=== PATIENT | male | born 1985 | race Two or more races ===

== ENCOUNTER 2024-09-20 12:12 | Emergency (ER) | payer MEDICAID, SELFPAY ==
[2024-09-20 12:14] VITALS: BP 161/98; PULSE 93; RESP 18; TEMP 36.8; O2SAT 94
--- NOTE | 2024-09-20 12:15 | PC.NURSE ---
Pt. here from home to bed 2 via wheel chair, pt. son with him and states that pt. fell off a horse, pt. has bleeding from laceration to left eye, bleeding from nares and abrasion to right breast and upper chest, pt. has a abrasion to the top of right wrist. Spouse bedside.
--- NOTE | 2024-09-20 12:15 | PC.NURSE ---
C-collar applied to pt.'s neck.
--- NOTE | 2024-09-20 12:16 | XR_ITS ---
Examination: CT maxillofacial, without intravenous contrast. 2-D sagittal reconstructions. 3-D reconstructions. Date and time of exam:September 20, 2024 1254 hrs. Indications: Patient fell off a horse today with injury to the face, multiple head and facial lacerations CTDI: vol (mGy):26.6 DLP: (mGycm):538 Technique: Multiple axial images of maxillofacial region, 3.0 mm slice thickness. 2-D sagittal and coronal reconstructions. 3-D reconstructions. Low dose protocols were performed. One or more of the following dose reduction techniques were used; automated exposure control, adjustment of the mA and/or KV according to patient size, use of iterative reconstruction technique. Findings: Frontal bone intact No nasal bone fracture Acute comminuted fractures through the left frontal zygomatic arch lateral orbit Acute severely comminuted blowout fractures left inferior orbital rim, no definite entrapment of the inferior rectus muscle but clinical correlation advised Acute fractures posterior and lateral margin left orbit axial image 112, including far posterior lateral margin of the left orbit Acute fractures anterior left cranial fossa axial image 99 contiguous with the posterior margin of the orbit Acute comminuted fractures left zygomatic arch Acute markedly displaced fractures lateral wall left maxillary antrum Multiple acute fractures posterior wall left maxillary antrum Pterygoid plates appear intact Acute fractures superior lateral margin of the left temporal articulating fossa axial image 79 sagittal image 29 Acute fracture with offset left mandibular ramus. Impression: Acute multiple fractures left orbit as above Acute fractures multiple left maxillary antrum Acute comminuted fractures with depression left zygomatic arch Acute fractures superior lateral margin of the left temporal articulating fossa Acute fracture left mandibular ramus Acute fractures anterior left cranial fossa contiguous with the posterior margin of the left arm
--- NOTE | 2024-09-20 12:16 | XR_ITS ---
Examination: CT brain head without contrast. 2-D sagittal coronal reconstructions Date and time of exam:September 20, 2024 1254 hrs. Indications: Patient fell today with injury to the head, head pain altered mental status CTDI: vol (mGy):63 DLP: (mGycm):1419 Technique: Multiple CT axial sections of the brain have been obtained, 5 mm slice thickness. Contrast has not been administered. 2-D sagittal, coronal reconstructions have been obtained Low dose protocols were performed. One or more of the following dose reduction techniques were used; automated exposure control, adjustment of the mA and/or KV according to patient size, use of iterative reconstruction technique. Findings: No significant ventricular enlargement. Intra-axial or extra-axial hemorrhage density is not seen. No mass effect or midline shift Basal cisterns are not remarkable. Fourth ventricle is midline. Cranial vault intact. Impression: Negative for acute hemorrhage, mass effect or midline shift Please see the CT maxillofacial study today
--- NOTE | 2024-09-20 12:16 | XR_ITS ---
Examination: CT chest, without intravenous contrast. CT abdomen, without intravenous contrast. CT pelvis, without intravenous contrast. 2-D sagittal and coronal reconstructions. 3-D reconstructions. Date and time of exam:September 19, 2024 1258 hrs. Indications: Patient fell off a horse today with injury to the chest and abdomen, chest pain abdomen pain CTDI vol (mgy) 21.2 DLP (MGycm)1617 Technique: Multiple CT images, 3.0 mm slice thickness, obtained chest, abdomen, pelvis, with the high-resolution 64 slice scanner.. Sagittal and coronal 2-D reconstructions are obtained. 3-D reconstructions Low dose protocols were performed. One or more of the following dose reduction techniques were used; automated exposure control, adjustment of the mA and/or KV according to patient size, use of iterative reconstruction technique. Findings: Lack of intravenous contrast severely limits assessment for body, Thoracic aorta pulmonary arteries grossly intact No hemopericardium No pneumothorax pulmonary contusion or hemothorax Manubrium thoracic vertebral bodies intact Ribs appear intact No liver splenic or renal laceration on this noncontrast study No perinephric hematoma Negative for pneumoperitoneum Abdominal aorta is intact Normal appendix No free blood in the abdomen Colonic diverticulosis Urinary bladder intact No prostatomegaly Old fracture proximal right femur No acute hip or pelvic fracture Lumbar vertebral bodies intact with advanced degenerative disc disease L4-L5, L5-S1 Hips bones of the pelvis intact Impression: Thoracic aorta pulmonary arteries appear intact No hemopericardium, pneumothorax, pulmonary contusion or hemothorax No abdominal parenchymal laceration Abdominal aorta intact No free blood in the abdomen or pelvis
--- NOTE | 2024-09-20 12:16 | XR_ITS ---
Examination: CT cervical spine without contrast 2-D sagittal reconstructions 2-D coronal reconstructions 3-D reconstructions. Exam date and time:September 20, 2024 1254 hrs. Indications: Patient fell off 46 day with injury to the neck, neck pain CTDI:vol (mGy) 15.9 DLP: (mGycm) 319 Technique: Multiple 2 mm axial sections of the cervical spine have been obtained. The coronal and sagittal reconstructions have been obtained. 3-D reconstructions have been obtained. Low dose protocols were performed. One or more of the following dose reduction techniques were used; automated exposure control, adjustment of the mA and/or KV according to patient size, use of iterative reconstruction technique. Findings: Study is significantly degraded by patient motion No gross fracture Impression: Study is significantly degraded by patient motion No gross cervical fracture Repeat this study as clinically warranted
--- NOTE | 2024-09-20 12:19 | PD.EDHEAD ---
ED Head Injury RME/HPI General Chief complaint: Head Injury Stated complaint: FELL OFF HORSE Time Seen by Provider: 09/20/24 12:16 Arrival date/time: 09/20/24 12:12 RME / HPI RME / HPI Narrative: 39-year-old male patient with no significant medical history, was brought in by family via private vehicle, for evaluation after a fall off the horse. Incident happened about 30 minutes prior to ER visit. Patient was noted to be confused, and complaining of posterior neck pain, and left periorbital pain. Patient also sustained 1 cm nongaping laceration to the left upper eyelid. Patient was noted to be having a GCS of 14. Denies any chest pain abdominal pain back pain or pelvic pain. Patient was able to transfer from chair to bed. Tetanus vaccination is unknown. Related Data Allergies Allergy/AdvReac Type Severity Reaction Status Date / Time NKA* Allergy Uncoded 09/20/24 12:13 Review of Systems Review of Systems Narrative Review of Systems: Review of system reviewed and within normal limits except mentioned in HPI ED Exam Narrative Physical exam: VITAL SIGNS: Reviewed., GENERAL APPEARANCE: Alert and oriented x 1, follows simple commands, no acute distress, GCS 14 HEAD AND FACE: Swelling contusion left side of the face, 1 cm laceration left upper eyebrow, injected conjunctiva on the left, tenderness to the left zygomatic area, left mandibular area with swelling ENT: PERRL, pink conjunctivitis, eyelid no trauma, Mucous membrane moist. NECK: Supple, nontender, no nuchal rigidity. CHEST: No tenderness, no crepitus, no paradoxical movement, no retractions. LUNGS: Clear, well ventilated, symmetric, no rales, no wheezing, no ronchi, no stridor, good breath sounds bilaterally. HEART: Regular rate, regular rhythm, no murmur, no gallops. ABDOMEN: Soft, positive bowel sounds, nondistended, no guarding, nontender, no rebound, no masses, RECTAL: Deferred. GENITAL: Deferred. NEUROLOGICAL: Gross motor function intact sensory function intact, Appropriate for age. MUSCULOSKELETAL: low back nontender, full range of motion. EXTREMITIES: Nontender, full range of motion. SKIN: Color pink, dry, no rash, no lacerations, no abrasions, no contusions. LYMPHATICS: Deferred. Course Quality Measures none Orders Category Date Time Status Referral - Finish Grinder Stat Cons 09/20/24 14:[address] cervical spine wo con Stat Exams 09/20/24 12:[address] chest abdomen pelvis wo Stat Exams 09/20/24 12:[address] facial bones wo con Stat Exams 09/20/24 12:[address] head/brain wo con Stat Exams 09/20/24 12:16 Completed CBC [CBC] Stat Lab 09/20/24 12:26 Completed CMP [Comprehensive Metabolic Panel] Stat Lab 09/20/24 12:26 Completed PTT [Partial Thromboplastin Time] Stat Lab 09/20/24 12:26 Completed UA, C/S IF [Urinalysis, C/S if Indicated] Stat Lab 09/20/24 12:18 Ordered Acetaminophen Ivpb [Ofirmev Inj] Med 09/20/24 12:17 Discontinued 1,000 mg in 100 ml IV X1 Amoxicillin/Pot Clav 875 [Augmentin 875] Med 09/20/24 15:17 Discontinued 1 tab PO X1 ONE Tet,Diphth,Pertuss(Acell)-Tdap [Boostrix Vacc] Med 09/20/24 12:17 Discontinued 0.5 ml IMI .ONCE ONE Vital Signs Vital signs: Vital Signs Temperature 98.2 F 09/20/24 12:14 Pulse Rate 93 09/20/24 12:14 Respiratory Rate 18 09/20/24 12:14 Blood Pressure 161/98 H 09/20/24 12:14 Pulse Oximetry (%) 94 L 09/20/24 12:14 Oxygen Delivery Method Room Air 09/20/24 12:14 Head Injury MDM Narrative MDM Narrative:: 39-year-old male patient with no significant medical history, was brought in by family via private vehicle, for evaluation after a fall off the horse. Incident happened about 30 minutes prior to ER visit. Patient was noted to be confused, and complaining of posterior neck pain, and left periorbital pain. Patient also sustained 1 cm nongaping laceration to the left upper eyelid. Patient was noted to be having a GCS of 14. Denies any chest pain abdominal pain back pain or pelvic pain. Patient was able to transfer from chair to bed. Tetanus vaccination is unknown. Patient sustained multiple fracture on the left side of the face, namely, acute multiple fracture of the left orbit, acute fracture multiple left maxillary antrum, acute comminuted fracture with depression left zygomatic arch, acute fracture superior lateral margin of the left temporal articulating facet, acute fracture left mandibular ramus, acute fracture anterior left cranial fossa with continues with the posterior margin of the left arm. CT scan of the head came back unremarkable. CT scan today came back unremarkable. CT scan of the chest abdomen pelvis came back unremarkable. Patient was given Tylenol IV, Boostrix, Patient is to be transferred for higher level care where there is a trauma surgeon/maxillofacial surgeon. Spoke with the patient family and agrees to be transferred. None 2 pm Spoke with transfer nurse, and will initiate the transfer. 12:30 PM, patient got accepted to [facility] in [place], accepting trauma surgeon Dr. Rivas, facial surgeon Dr. Rodgers Patient data External records reviewed:: None Clinical information provided by:: patient Social determinants that could affect healthcare access:: none Patient has the following chronic illnesses:: None How is presenting disease/condition affected by chronic disease/condition?: no chronic disease Evaluation data The following diagnostics were reviewed and interpreted by me:: lab results and radiology exam(s) Lab and/or radiology exams considered but not ordered:: None Interpretation Summary: Patient sustained multiple fracture on the left side of the face, namely, acute multiple fracture of the left orbit, acute fracture multiple left maxillary antrum, acute comminuted fracture with depression left zygomatic arch, acute fracture superior lateral margin of the left temporal articulating facet, acute fracture left mandibular ramus, acute fracture anterior left cranial fossa with continues with the posterior margin of the left arm. CT scan of the head came back unremarkable. CT scan today came back unremarkable. CT scan of the chest abdomen pelvis came back unremarkable. Medications / Prescriptions Medications or Prescriptions considered but not ordered:: None Medication administrations:: Medication Administration History Discontinued Medications Amoxicillin/Clavulanate Potassium (Amoxicillin/Pot Clav 875 Tablet) 1 tab PO X1 ONE Stop: 09/20/24 15:18 Diphtheria/Tetanus/Acell Pertussis (Diphth,Pertuss(Acell),Tet Vac 0.5 Ml Vial) 0.5 ml IMi .ONCE ONE Stop: 09/20/24 12:18 Last Admin: 09/20/24 12:34 Dose: 0.5 ml Documented By: ED Acetaminophen (Ofirmev Inj) 1,000 mg in 100 mls @ 250 mls/hr IV X1 ONE Stop: 09/20/24 12:40 Last Admin: 09/20/24 12:30 Dose: 250 mls/hr Documented By: ED Tylenol IV, Boostrix and Augmentin Consultations Consultation(s) initiated? (list below): No Diagnosis Differential diagnosis head injury: other (Facial fracture, intracranial bleed, status post fall) Most likely diagnosis given after review of the tests above:: Multiple facial fracture Admission Indicated Admission indicated?: indicated Explain why admission is indicated or not indicated:: Accepted to [facility] in [place] Admission Request Was there a request for admission?: No Disposition Plan Disposition Plan: Transfer Critical Care Time Critical Care Time Attestation: Critical Care Time The very real possibility of a deterioration of this patient's condition required the highest level of my preparedness for sudden, emergent intervention for the following systems: Cardiac and Metabolic. I provided critical care services, which included medication orders, frequent re-evaluations of the patient's condition and response to treatment, ordering and reviewing test results, and discussing the case with various consultants including: nursing staff, hospitalist, and more. The critical care time associated with the care of this patient was 45 minutes. Discharge Plan Plan Patient Disposition: Xfer Acute Care Fac Problem List Clinical Impression: Fall, Orbital fracture, Maxillary fracture, Zygomatic arch fracture, Fracture of temporal bone, Fracture, mandibular Patient/Caregiver Discharge Instructions Print Language: Macedonian Stand Alone Forms: Emily Award Info., Patient Portal Info Letter
[2024-09-20 12:30] LABS: Basophils # (Auto) 0.1 Thou/mm3 (0.0-0.2); Basophils % (Auto) 1 % (0-2.5); Eosinophils # (Auto) 0.2 Thou/mm3 (0.0-0.5); Eosinophils % (Auto) 2 % (0-10); Hematocrit 43.1 % (41.0-53.0); Hemoglobin 14.7 g/dL (13.5-16.0); Immature Granulocytes % (Auto) 0 % (0-0); Immature Granulocytes Auto 0.04 Thou/mm3 (0.00-0.00); Lymphocytes # (Auto) 4.4 Thou/mm3 (1.0-4.8); Lymphocytes % (Auto) 39 % (10-50); Mean Corpuscular HGB Conc 34.1 g/dl (31.0-37.0); Mean Corpuscular Hemoglobin 28.8 pg (25.0-35.0); Mean Corpuscular Volume 84 fL (80-100); Monocytes # (Auto) 0.6 Thou/mm3 (0.0-0.8); Monocytes % (Auto) 6 % (0-12); Neutrophils # (Auto) 5.9 Thou/mm3 (1.8-7.7); Neutrophils % (Auto) 53 % (37-80); Nucleated Red Blood Cell % 0 /100 WBC (0); Platelet Count 277 Thou/mm3 (140-440); RDW Standard Deviation 40.4 fL (35.1-43.9); Red Blood Count 5.11 Miln/mm3 (4.50-5.90); White Blood Count 11.3 Thou/mm3 (3.8-10.6)
[2024-09-20] MEDS: ACETAMINOPHEN IVPB 1,000 MG/100 ML VIAL 250 MG IV (12:30)
[2024-09-20] MEDS: DIPHTH,PERTUSS(ACELL),TET VAC 0.5 ML VIAL IMi (12:34)
[2024-09-20 12:41] VITALS: BMI 29.8
[2024-09-20 12:53] LABS: Alanine Aminotransferase 42 U/L (10-49); Albumin, Serum 4.4 gm/dL (3.5-5.0); Albumin/Globulin Ratio 1.7 (1.2-2.2); Alkaline Phosphatase 87 U/L (46-116); Anion Gap 9 (7-16); Aspartate Amino Transferase 31 U/L (0-34); BUN/Creatinine Ratio 10 Ratio (12-20); Bilirubin,Total 0.5 mg/dL (0.3-1.2); Blood Urea Nitrogen 11 mg/dL (9-23); Calcium 9.6 mg/dL (8.3-10.6); Calcium (Corrected) 9.6 mg/dL (8.5-10.1); Carbon Dioxide 24.1 mMol/L (20.0-31.0); Chloride 105 mMol/L (98-107); Creatinine (Component) 1.1 mg/dL (0.6-1.3); Estimated Creatinine Clearance 111.4 mL/min (>60); Globulin 2.6 gm/dL (2.3-3.5); Glucose 131 mg/dL (74-106); Osmolality,Calculated 277 (275-295); Partial Thromboplastin Time 22.7 Seconds (22.0-36.0); Potassium 3.9 mMol/L (3.4-5.1); Sodium 138 mMol/L (136-145); eGFR > 60 See Note
--- NOTE | 2024-09-20 13:02 | PC.NURSE ---
Pt. in CT.
--- NOTE | 2024-09-20 13:11 | PC.NURSE ---
Pt. back from CT to room 2.
[2024-09-20 13:12] VITALS: BP 164/89; PULSE 72; RESP 18; O2SAT 100
[2024-09-20 14:00] VITALS: BP 136/78; PULSE 86; RESP 14; TEMP 36.8; O2SAT 100
--- NOTE | 2024-09-20 14:37 | PC.CM ---
Addendum entered by Macho Marrero RN 09/20/24 15:45: 1638- Patient accepted at [facility] under the care of Dr. Rivas and Dr. Pickard for ER to ER transfer. Updated ER CN and provided packet and number for report, . Transport being set up by [facility]. Addendum entered by Macho Marrero RN 09/20/24 15:14: 1510 Received call from SOULEYMANE Siddiqui at [facility], they are reviewed case with their MD at this time, awaiting response. Addendum entered by Macho Marrero RN 09/20/24 15:12: 1443 Received call from SOULEYMANE Bains at [facility] requesting images to be pushed electronically, sent. Case being reviewed, pending update from [facility]. Addendum entered by Macho Marrero RN 09/20/24 14:41: 1440 Received call from SOULEYMANE Beck at [facility], declined patient as they do not have OMFS service available. Addendum entered by Macho Marrero RN 09/20/24 14:40: 1435 Initiated transfer, packets sent to [facility], [facility], and [facility]. Packet created and disc with images created. Original Note: 1428 Received call from ER [facility], requesting transfer for HLOC, patient fell from horse, multiple facial fractures, maxillary fracture, and skull fractures.
--- NOTE | 2024-09-20 15:43 | PC.NURSE ---
Pt. resting right now with his eyes closed.
[2024-09-20] MEDS: AMOXICILLIN/POT CLAV 875 TABLET 1 TAB PO (15:46)
[2024-09-20 16:00] VITALS: BP 157/102; PULSE 81; RESP 20; TEMP 36.9; O2SAT 99
[2024-09-20 18:00] VITALS: BP 161/106; PULSE 77; RESP 20; TEMP 37.4; O2SAT 99
[2024-09-20 18:18] VITALS: BP 161/106; PULSE 73; RESP 18; TEMP 37.4; O2SAT 99
== END 2024-09-20 18:15 | disposition short-term general hospital (02) ==
PROVIDERS: Nurse Practitioner Family; Emergency Provider Emergency Medicine
DX: S02.40FA Zygomatic fracture, left side, initial encounter for closed fracture (principal); S02.19XA Other fracture of base of skull, initial encounter for closed fracture; S02.40DA Maxillary fracture, left side, initial encounter for closed fracture; S02.85XA Fracture of orbit, unspecified, initial encounter for closed fracture; S01.112A Laceration without foreign body of left eyelid and periocular area, initial encounter; V80.010A Animal-rider injured by fall from or being thrown from horse in noncollision accident, initial encounter; Y93.52 Activity, horseback riding; Z23 Encounter for immunization
CPT/HCPCS: 36415; 70450; 70486; 71250; 72125; 74176; 80053; 81001; 85025; 85730; 90471; 90715; 96365; 99291; J0131; A9270